=== PATIENT | male | born 1995 | race African-American/Black ===

== ENCOUNTER 2016-06-12 16:17 | Inpatient (IN) | payer OTHER ==
[~2016-06-12] VITALS: Ht 167.6 cm; Wt 65.8 kg
[2016-06-12 17:25] LABS: BASO % 0.2 % (0.0-1.0); EOS # 0.6 K/mm3 (0.0-0.50); EOS % 4.5 % (0.0-3.0); LARGE UNSTAINED CELL # 0.1 K/mm3 (0.0-0.4); LARGE UNSTAINED CELL % 0.7 % (0.0-4.0); LYMPH # 0.5 K/mm3 (1.5-6.5); LYMPH % 3.9 % (24.0-44.0); MEAN CORPUSCULAR HEMOGLOBIN 30.7 pg (27.0-33.0); MEAN CORPUSCULAR HGB CONC 33.9 g/dl (32.0-36.5); MEAN CORPUSCULAR VOLUME 90.7 fl (80.0-96.0); MONO # 0.3 K/mm3 (0.0-0.8); MONO % 2.2 % (0.0-5.0); NEUTROPHILS # 11.3 K/mm3 (1.8-7.7); NEUTROPHILS % 88.5 % (36.0-66.0); PLATELET COUNT, AUTOMATED 211 k/mm3 (150-450); RED CELL DISTRIBUTION WIDTH 11.7 % (11.5-14.5); WHITE BLOOD COUNT 12.7 K/mm3 (4.0-10.0)
[2016-06-12] MEDS ORDERED: ACETAMINOPHEN 325 MG TAB As Ordered ONE (17:39)
[2016-06-12] MEDS ORDERED: IBUPROFEN 600 MG TAB As Ordered ONE (17:39)
[2016-06-12 17:45] LABS: ANION GAP 8 MEQ/L (8-16); BLOOD UREA NITROGEN 17 MG/DL (7-18); CALCIUM LEVEL 8.5 MG/DL (8.5-10.1); CARBON DIOXIDE LEVEL 26 MEQ/L (21-32); CHLORIDE LEVEL 104 MEQ/L (98-107); CREATININE FOR GFR 1.46 MG/DL (0.70-1.30); GLUCOSE, FASTING 140 MG/DL (70-105); POTASSIUM SERUM 3.8 MEQ/L (3.5-5.1); SODIUM LEVEL 138 MEQ/L (136-145)
[2016-06-12] MEDS ORDERED: ISOVUE-370 76% 100ML VIAL (Q9967) As Ordered ONE (17:46)
[2016-06-12 18:04] LABS: ERYTHROCYTE SEDIMENTATION RATE 21 mm/hr (0-15)
--- NOTE | 2016-06-12 18:14 | REP ---
Clinical: Right lower extremity mass. Technique: Axial contrast enhanced images of the right femoral diaphysis using 100 ml Isovue 370 intravenous contrast material with coronal and sagittal re-formations. Findings: CT examination demonstrates mild dermal thickening and subcutaneous infiltration along the medial aspect of the visualized right femur suggesting cellulitis. A small ovoid dermal collection measures approximately 2.2 x 0.9 x 1.9 cm and may represent localized abscess. The underlying musculature as well as the visualized neurovascular bundles and femur are normal. Impression: Cellulitis and possible small skin abscess measuring 22 x 9 x 19 mm. Signed by Los Saini MD 06/12/2016 06:05 P
[2016-06-12] MEDS ORDERED: CLINDAMYCIN INJ 900MG/6ML VIAL As Ordered ONE (18:28)
[2016-06-12] MEDS ORDERED: ACETAMINOPHEN 500 MG TAB PO PRN (18:45)
[2016-06-12] MEDS ORDERED: oxyCODONE 5MG TAB PO PRN (19:15)
--- NOTE | 2016-06-12 21:06 | EDDOCDS ---
Physician Documentation [facility] Name: Channing Melendez Age: 20 yrs Sex: Male : 1995 Arrival Date: 06/12/2016 Time: 16:17 Bed I4 / M4 Private MD: Brandee Phillips [facility] Disposition: 06/12/16 18:32 Hospitalization ordered by Kelli Chahal for Inpatient Admission. Preliminary diagnosis is Cellulitis of right lower limb - MEDIAL THIGH. - Bed requested for M PED. - Status is Inpatient Admission. slm - Condition is Stable. - Problem is new. - Symptoms are unchanged. Historical: - Allergies: no known allergies; - Home Meds: 1. none - PMHx: none; - PSHx: none; - Social history: Smoking status: Patient states was never smoker of tobacco. No barriers to communication noted, The patient speaks fluent Azeri, Speaks appropriately for age. - Family history: Not pertinent. - : The pt / caregiver states he / she is not on anticoagulants. Home medication list is obtained from the patient. - Exposure Risk Screening:: None identified. Vital Signs: 06/12 16:19 BP 122 / 68; Pulse 118; Resp 18; Temp 102.2(O); Pulse Ox 100% on R/A; Weight 65.77 kg / dem1 145 lbs; Height 66 in. (167.64 cm); Pain 10/10; 18:28 BP 134 / 53; Pulse 100; Resp 18; Temp 101.2(O); Pulse Ox 100% on R/A; kc3 18:41 BP 124 / 52; Pulse 99; Resp 18; Temp 100.9(O); Pulse Ox 98% on R/A; Pain 6/10; nb2 21:01 BP 126 / 62; Pulse 97; Resp 18; Temp 99.5(O); Pulse Ox 99% on R/A; Pain 2/10; mcp 16:19 Body Mass Index 23.40 (65.77 kg, 167.64 cm) dem1 MDM: 17:01 IV Saline Lock ordered. ck7 17:01 -Blood Culture (Adults Only), peripheral from different site, or from device/port/PICC ck7 etc. if present ordered. [facility]:01 [facility] ordered. ck7 17:01 Obtain sample by nasopharyngeal swab ordered. ck7 17:02 CBC with Diff Ordered. EDMS 17:02 MED Profile Ordered. EDMS 17:02 ESR Ordered. EDMS 17:02 CRP Ordered. EDMS 17:02 -Blood Culture Ordered. EDMS 17:02 -Influenza A&B Rapid Antigen - Nose Ordered. EDMS 17:05 -Blood Culture (Adults Only), peripheral from different site, or from device/port/PICC nb2 etc. if present complete. 17:07 BLOOD CULTURES Ordered. EDMS 17:20 Misc Shine Worker Order complete. lbd 17:30 Ibuprofen 600 mg PO once ordered. ck7 17:30 Acetaminophen Tablet 975 mg PO once ordered. ck7 17:52 Financial registration complete. kf3 18:19 CBC with Diff Reviewed. ck7 18:19 MED Profile Reviewed. ck7 18:19 ESR Reviewed. ck7 18:19 CRP Reviewed. ck7 18:19 -Influenza A&B Rapid Antigen - Nose Reviewed. ck7 18:19 [place] [place] was scanned into [employer] and attached to record. kf3 18:25 Clindamycin 900 mg IVPB once over 30 mins; dilute in 50mL of NS or D5W ordered. ck7 18:29 BED REQUEST+ADM ordered. EDMS 18:33 Admission / Observation Status ordered. EDMS 18:33 REGULAR DIET ordered. EDMS 19:31 C REACTIVE PROTEIN QUANTITATIV Ordered. EDMS 19:31 CBC WITH DIFFERENTIAL Ordered. EDMS 19:32 BASIC METABOLIC PROFILE Ordered. EDMS 20:33 T-Sheet-- Draft Copy was scanned into [employer] and attached to record. klr Administered Medications: 17:45 Drug: Ibuprofen 600 mg [ibuprofen 600 mg tablet (1 tabs)] Route: PO; kc3 17:45 Drug: Acetaminophen 975 mg [acetaminophen 325 mg tablet (3 tabs)] Route: PO; kc3 18:39 Drug: Clindamycin 900 mg [clindamycin 300 mg/50 mL in 5 % dextrose intravenous pml piggyback] Route: IVPB; Infused Over: 30 mins; Site: left antecubital; Signatures: Dispatcher [employer] EDMS Lourdes Cifuentes, Size Marker Unit lbd Shawanda Goodman RN RN srm Yosephr, Manuel, Reg Reg kf3 Kelly Kowalski RN RN pml Kwaczala, Christopher, RPA-C RPA-Cck7 Dannielle Santizo LPN LPN Trisha Perry Nicole nb2 Efrain Sanchez RN RN sa Crane, Kelsi RN kc3 The chart was reviewed and I authenticate all verbal orders and agree with the evaluation and treatment provided.Corrections: (The following items were deleted from the chart) 17:25 17:22 CT ANGIO LOWER EXTREM ordered. EDMS EDMS Attachments: 18:19 [facility] Payment Agreement kf3 20:33 T-Sheet-- Draft Copy klr MTDD
--- NOTE | 2016-06-12 21:06 | EDDOCDS ---
Nurse's Notes [facility] Name: Channing Melendez Age: 20 yrs Sex: Male : 1995 Arrival Date: 06/12/2016 Time: 16:17 Bed I4 / M4 Private MD: Brandee Phillips [facility] Diagnosis: Cellulitis of right lower limb-MEDIAL THIGH Presentation: 06/12 16:26 Presenting complaint: Patient states: sent here from [facility]- lump to right thigh for srm about 2 months. no injury to the area. its getting bigger and today started with temp 102. has had us/ and CT scan and 2 weeks ago was told to see a surgeon but didn't set that up. Adult Sepsis Screening: The patient does not have new or worsening altered mentation. Patient's respiratory rate is less than 22. Systolic blood pressure is greater than 100. Patient has a qSOFA score of 0- Negative Sepsis Screen. Suicide/Homicide risk assessment- the patient denies having any suicidal and/or homicidal ideations and does not present with any other emotional, behavioral or mental health complaints. 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 Transition of care: patient was not received from another setting of care. 16:26 Acuity: BIRD Level 3 srm 16:26 Method Of Arrival: Walkin/Carried/Asstd srm Triage Assessment: 16:28 General: Appears in no apparent distress, Behavior is appropriate for age, cooperative. srm Pain: Pain currently is 6 out of 10 on a pain scale. At worst was 8 out of 10 on a pain scale. 16:30 Pt Declines HIV testing. srm Historical: - Allergies: no known allergies; - Home Meds: 1. none - PMHx: none; - PSHx: none; - Social history: Smoking status: Patient states was never smoker of tobacco. No barriers to communication noted, The patient speaks fluent Estonian, Speaks appropriately for age. - Family history: Not pertinent. - : The pt / caregiver states he / she is not on anticoagulants. Home medication list is obtained from the patient. - Exposure Risk Screening:: None identified. Screenin:10 Screening information is obtained from the patient. Fall risk: No risks identified. pml Assistance ADL's: requires no assistance with activities of daily living. Abuse/DV Screen: The patient / caregiver reports he/she is: not in a situation that causes fear, pain or injury. Nutritional screening: No deficits noted. Advance Directives: Currently, there is no health care proxy. home support is adequate. Assessment: 17:10 General: Appears in no apparent distress, comfortable. Pain: Location: right hamstring pml Pain currently is 7 out of 10 on a pain scale. Neurological: Level of Consciousness is awake, alert, Oriented to person, place, time. Cardiovascular: Capillary refill < 3 seconds. Respiratory: Airway is patent Respiratory effort is even, unlabored. GI: Abdomen is non- distended. Derm: Skin is normal. Derm: palpable lump to posterior medial right upper thigh, approx gold ball sized. 18:39 General: resting on stretcher, resps easy and unlabored, skin p/w/d. . pml 19:42 General: Appears in no apparent distress, comfortable, Behavior is cooperative. mcp Neurological: No deficits noted. Respiratory: Airway is patent Respiratory effort is even, unlabored. Derm: Skin is normal, Red lump noticed right upper thigh with redness surrounding the lump. 20:59 General: Appears in no apparent distress, comfortable, Behavior is cooperative. mcp Neurological: No deficits noted. Respiratory: Airway is patent Respiratory effort is even, unlabored. Derm: Skin is normal. Vital Signs: 16:19 BP 122 / 68; Pulse 118; Resp 18; Temp 102.2(O); Pulse Ox 100% on R/A; Weight 65.77 kg; dem1 Height 66 in. (167.64 cm); Pain 10/10; 18:28 BP 134 / 53; Pulse 100; Resp 18; Temp 101.2(O); Pulse Ox 100% on R/A; kc3 18:41 BP 124 / 52; Pulse 99; Resp 18; Temp 100.9(O); Pulse Ox 98% on R/A; Pain 6/10; nb2 21:01 BP 126 / 62; Pulse 97; Resp 18; Temp 99.5(O); Pulse Ox 99% on R/A; Pain 2/10; mcp 16:19 Body Mass Index 23.40 (65.77 kg, 167.64 cm) [facility] Vitals: 16:19 Log In Time: June 12, 2016 at 16:17. [facility] ED Course: 16:18 Patient visited by Jung Oshea. dem1 16:18 Patient moved to Waiting dem1 16:19 Brandee Phillips [facility] is Private Physician. dem1 16:20 Patient visited by Jung Oshea. dem1 16:20 Patient moved to Pre RCE dem1 16:28 Triage Initiated srm 16:31 Patient moved to Triage 3 jjr 16:46 Pal Morales RPA-C is PHCP. ck7 16:46 Keron Bazzi MD is Attending Physician. ck7 16:46 Patient visited by Pal Morales RPA-C. ck7 17:03 Patient moved to I4 / M4 srm 17:10 The patient / caregiver is instructed regarding the plan of care and ED course. Patient pml has correct armband on for positive identification. Placed in gown. Bed in low position. Call light in reach. Side rails up X2. 17:12 Patient visited by Kelly Kowalski RN. pml 17:19 BLOOD CULTURES Sent. kc3 17:19 -Influenza A&B Rapid Antigen - Nose Sent. kc3 17:19 -Blood Culture Sent. kc3 17:20 Patient visited by Mare Hitchcock RN. kc3 17:20 CRP Sent. kc3 17:20 ESR Sent. kc3 17:20 MED Profile Sent. kc3 17:20 CBC with Diff Sent. kc3 17:20 Inserted saline lock: 20 gauge in left antecubital area and blood collected. The kc3 patient tolerated the procedure well. Labs drawn. (by ED staff). Sent per order to lab. Labs/Blood culture drawn. 18:02 Patient visited by Pal Morales RPA-C. ck7 18:17 Patient name changed from Channing\S\\S\[place]\S\ to Channing\S\Javier\S\[place]. EDMS 18:19 [facility] [place] was scanned into [employer] and attached to record. kf3 18:31 Kelli Chahal is Hospitalizing Provider. ck7 18:40 Patient visited by Kelly Kowalski,IKE. pml 18:42 Patient visited by Naheed Alvarado. nb2 19:43 Patient visited by Janett Pierre RN. mcp 20:33 T-Sheet-- Draft Copy was scanned into [employer] and attached to record. klr 21:00 No procedures done that require assistance. mcp 21:05 Patient visited by Janett Pierre RN. [facility] Administered Medications: 17:45 Drug: Ibuprofen 600 mg [ibuprofen 600 mg tablet (1 tabs)] Route: PO; kc3 17:45 Drug: Acetaminophen 975 mg [acetaminophen 325 mg tablet (3 tabs)] Route: PO; kc3 18:39 Drug: Clindamycin 900 mg [clindamycin 300 mg/50 mL in 5 % dextrose intravenous pml piggyback] Route: IVPB; Infused Over: 30 mins; Site: left antecubital; Order Results: Lab Order: CBC with Diff; SPEC'M 06/12/16 17:10 Test: WHITE BLOOD COUNT; Value: 12.7; Range: 4.0-10.0; Abnormal: Above high normal; Units: K/mm3; Status: F Test: RED BLOOD COUNT; Value: 4.28; Range: 4.30-6.10; Abnormal: Below low normal; Units: M/mm3; Status: F Test: HEMOGLOBIN; Value: 13.1; Range: 14.0-18.0; Abnormal: Below low normal; Units: g/dl; Status: F Test: HEMATOCRIT; Value: 38.8; Range: 42.0-52.0; Abnormal: Below low normal; Units: %; Status: F Test: MEAN CORPUSCULAR VOLUME; Value: 90.7; Range: 80.0-96.0; Units: fl; Status: F Test: MEAN CORPUSCULAR HEMOGLOBIN; Value: 30.7; Range: 27.0-33.0; Units: pg; Status: F Test: MEAN CORPUSCULAR HGB CONC; Value: 33.9; Range: 32.0-36.5; Units: g/dl; Status: F Test: RED CELL DISTRIBUTION WIDTH; Value: 11.7; Range: 11.5-14.5; Units: %; Status: F Test: PLATELET COUNT, AUTOMATED; Value: 211; Range: 150-450; Units: k/mm3; Status: F Test: NEUTROPHILS %; Value: 88.5; Range: 36.0-66.0; Abnormal: Above high normal; Units: %; Status: F Test: LYMPH %; Value: 3.9; Range: 24.0-44.0; Abnormal: Below low normal; Units: %; Status: F Test: MONO %; Value: 2.2; Range: 0.0-5.0; Units: %; Status: F Test: EOS %; Value: 4.5; Range: 0.0-3.0; Abnormal: Above high normal; Units: %; Status: F Test: BASO %; Value: 0.2; Range: 0.0-1.0; Units: %; Status: F Test: LARGE UNSTAINED CELL %; Value: 0.7; Range: 0.0-4.0; Units: %; Status: F Test: NEUTROPHILS #; Value: 11.3; Range: 1.8-7.7; Abnormal: Above high normal; Units: K/mm3; Status: F Test: LYMPH #; Value: 0.5; Range: 1.5-6.5; Abnormal: Below low normal; Units: K/mm3; Status: F Test: MONO #; Value: 0.3; Range: 0.0-0.8; Units: K/mm3; Status: F Test: EOS #; Value: 0.6; Range: 0.0-0.50; Abnormal: Above high normal; Units: K/mm3; Status: F Test: BASO #; Value: 0.0; Range: 0.0-0.2; Units: K/mm3; Status: F Test: LARGE UNSTAINED CELL #; Value: 0.1; Range: 0.0-0.4; Units: K/mm3; Status: F Lab Order: [facility]; [facility] 06/12/16 17:10 Test: GLUCOSE, FASTING; Value: 140; Range: 70-105; Abnormal: Above high normal; Units: MG/DL; Status: F Test: BLOOD UREA NITROGEN; Value: 17; Range: 7-18; Units: MG/DL; Status: F Test: CREATININE FOR GFR; Value: 1.46; Range: 0.70-1.30; Abnormal: Above high normal; Units: MG/DL; Status: F Test: SODIUM LEVEL; Value: 138; Range: 136-145; Units: MEQ/L; Status: F Test: POTASSIUM SERUM; Value: 3.8; Range: 3.5-5.1; Units: MEQ/L; Status: F Test: CHLORIDE LEVEL; Value: 104; Range: 98-107; Units: MEQ/L; Status: F Test: CARBON DIOXIDE LEVEL; Value: 26; Range: 21-32; Units: MEQ/L; Status: F Test: ANION GAP; Value: 8; Range: 8-16; Units: MEQ/L; Status: F Test: CALCIUM LEVEL; Value: 8.5; Range: 8.5-10.1; Units: MG/DL; Status: F Lab Order: ESR; SPEC'M 06/12/16 17:10 Test: ERYTHROCYTE SEDIMENTATION RATE; Value: 21; Range: 0-15; Abnormal: Above high normal; Units: mm/hr; Status: F Lab Order: CRP; SPEC'M 06/12/16 17:10 Test: C REACTIVE PROTEIN QUANTITATIV; Value: 2.82; Range: 0.00-0.30; Abnormal: Above high normal; Units: MG/DL; Status: F Lab Order: -Influenza A&B Rapid Antigen - Nose; SPEC'M 06/12/16 17:10 Test: INFLUENZA A RAPID SCR by ICA; Value: INFLUENZA A RESULTS NEGATIVE; Status: F Test: INFLUENZA A RAPID SCR by ICA; Value: Comments:; Status: F Test: INFLUENZA B RAPID SCR by ICA; Value: INFLUENZA B RESULTS NEGATIVE; Status: F Test Note: ; The Influenza test is a direct rapid immunoassay for the qualitative detection of Influenza viral antigen. Cell culture (Viral Culture) testing should be considered to confirm NEGATIVE results and to assist in detecting other viruses that can provide similar clinical symptoms. Please contact the lab within 24 hours ([phone]) if confirmatory testing is desired. Outcome: 18:29 CT Study completed. 3 18:32 Decision to Hospitalize by Provider. ck7 21:00 Discharge Assessment: patient administered narcotics - no. The following High Risk [facility] Discharge criteria are identified: None. Admitted to Pediatrics accompanied by tech, via wheelchair, with chart. Condition: stable. Property :Personal belongings accompany Pt. 21:06 Patient left the ED. slm Signatures: Dispatcher [employer] EDMS Shawanda Goodman RN RN srm Peters, Mary, RN RN mcp Manuel Wong, Reg Reg kf3 Dawna Connor RN RN jjr Quay, Paulina, RN RN pml Mack Jung dem1 Pal Morales, RPA-C RPA-Cck7 Dannielle Santizo LPN LPN slm Crane, Kelsi, RN RN kc3 Dario, Naheed Pinzon2 LUKE
[2016-06-12 21:15] VITALS: BP 116/53
[2016-06-12] MEDS: NS 1,000 ML IV SCH (22:14)
[2016-06-12] MEDS: CEFTAROLINE FOSAMIL 600 MG in D5W MINI-BAG PLUS 50 ML IV SCH (22:28)
[2016-06-13 04:00] VITALS: BP 135/57
--- NOTE | 2016-06-13 06:46 | HPE ---
DATE OF ADMISSION: 06/12/2016 PRIMARY CARE PROVIDER: At the [facility] in [place]. CHIEF COMPLAINT: Pain, swelling, warmth and redness of the lump on the inner aspect of right thigh for 1 day. PAST MEDICAL HISTORY: None. 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 CT scan was done and there was talk about referral to a specialist; however, that did not happen yet. From yesterday, patient started having fever and then he noticed increasing pain, tenderness and swelling and redness of his lump on the inner thigh. He went to see his primary care provider at the [facility] today and there he was found to have a temperature of 102 and was sent here for evaluation. In the emergency department (ED), patient had a CT scan of the lower extremity done, which showed cellulitis and possible small skin abscess measuring 22 x 9 x 19 mm of the right thigh. Patient was febrile to 102.2 on admission. Patient is being admitted to the hospitalist service for cellulitis and abscess of the right thigh. PAST SURGICAL HISTORY: None. ALLERGIES: No known allergies. SOCIAL HISTORY: Patient does not smoke, does not abuse alcohol or recreational drugs. FAMILY HISTORY: Not pertinent. REVIEW OF SYSTEMS: Fever, chills, headache for 1 day. Pain, swelling and redness of the lump on the inner thigh for 1 day. Denies any cough or phlegm, chest pain or shortness of breath. Denies any abdominal pain, vomiting or diarrhea. Did have some nausea earlier, which has now resolved. PHYSICAL EXAMINATION: VITAL SIGNS: Blood pressure 134/53, pulse 100, respiratory rate 18, temperature 101.2, pulse oximetry 100% in room air. GENERAL: Patient awake, alert, oriented times three, sitting up in bed in no acute distress. HEENT: Normocephalic, atraumatic. Moist mucous membranes. Anicteric eyes. CHEST: Clear to auscultation. CARDIOVASCULAR: S1, S2 regular. No rub, murmur or gallop. ABDOMEN: Soft, nontender, bowel sounds present. EXTREMITIES: No edema. On the right lower extremity on the inner aspect of the thigh there is a 2 x 2 cm swelling with fluctuation with surrounding inflammation. LABORATORY DATA: WBC 12.7, hemoglobin 13.1, platelets 211. Sodium 138, potassium 3.8, chloride 104, bicarbonate 26, BUN 17, creatinine 1.46, glucose 140, calcium 8.5, CRP 2.82. ASSESSMENT AND PLAN: This is a 20-year-old male admitted for cellulitis and abscess of the thigh. PLAN: 1. For cellulitis and abscess, will start the patient on ceftaroline. Blood cultures have been sent. Have asked Dr. Griffith from surgery to evaluate the patient to see if the patient will need incision and drainage. 2. Acute kidney injury. Possibly due to high fever, insensible losses and prerenal and mild dehydration from these. Will start the patient on intravenous (IV) fluids. 3. Deep venous thrombosis (DVT) prophylaxis has been ordered. 4. Gastrointestinal (GI) prophylaxis has been ordered.
[2016-06-13 06:59] LABS: BASO % 0.1 % (0.0-1.0); EOS # 0.6 K/mm3 (0.0-0.50); EOS % 6.8 % (0.0-3.0); LARGE UNSTAINED CELL # 0.2 K/mm3 (0.0-0.4); LARGE UNSTAINED CELL % 1.5 % (0.0-4.0); LYMPH # 0.5 K/mm3 (1.5-6.5); LYMPH % 5.3 % (24.0-44.0); MEAN CORPUSCULAR HEMOGLOBIN 30.5 pg (27.0-33.0); MEAN CORPUSCULAR HGB CONC 33.7 g/dl (32.0-36.5); MEAN CORPUSCULAR VOLUME 90.7 fl (80.0-96.0); MONO # 0.3 K/mm3 (0.0-0.8); NEUTROPHILS % 83.4 % (36.0-66.0); PLATELET COUNT, AUTOMATED 174 k/mm3 (150-450); RED CELL DISTRIBUTION WIDTH 11.9 % (11.5-14.5); WHITE BLOOD COUNT 9.6 K/mm3 (4.0-10.0)
[2016-06-13 07:10] LABS: ANION GAP 7 MEQ/L (8-16); BLOOD UREA NITROGEN 20 MG/DL (7-18); CALCIUM LEVEL 8.1 MG/DL (8.5-10.1); CARBON DIOXIDE LEVEL 27 MEQ/L (21-32); CHLORIDE LEVEL 107 MEQ/L (98-107); CREATININE FOR GFR 1.26 MG/DL (0.70-1.30); GLUCOSE, FASTING 109 MG/DL (70-105); POTASSIUM SERUM 3.9 MEQ/L (3.5-5.1); SODIUM LEVEL 141 MEQ/L (136-145)
[2016-06-13 08:00] VITALS: BP 108/51
[2016-06-13] MEDS: NS 1,000 ML IV SCH ×3 (08:51→19:41)
[2016-06-13] MEDS ORDERED: ENOXAPARIN 40 MG/0.4 ML SYRINGE (J1650) SC SCH (09:00)
[2016-06-13] MEDS: PANTOPRAZOLE 40MG TAB (PROTONIX) PO SCH (09:32)
[2016-06-13] MEDS: CEFTAROLINE FOSAMIL 600 MG in D5W MINI-BAG PLUS 50 ML IV SCH ×2 (09:32→21:15)
--- NOTE | 2016-06-13 09:32 | IPNPDOC ---
Subjective Date Seen The patient was seen on 06/13/16. Subjective Chief Complaint/HPI The patient is a 20-year-old male admitted with a reason for visit of Cellulitis And Abscess Of Leg. General: Denies: Chills, Fatigue, Malaise, Night Sweats, Normal Appetite, Other Symptoms, ROS Unobtainable Constitutional: Denies: Chills, Fatigue, Fever, Lethargy, Malaise, Night Sweats , Other, Weakness, Weight Loss Eyes: Denies: Conjunctivae inflammation, Eyelid inflammation, Other, Pain, Redness, Vision change ENT: Denies: Dysphagia, Ear Pain, Epistaxis, Head Aches, Other Symptoms, Post Nasal Drip, Sinus Congestion, Sore Throat Skin: Denies: Breakdown, Bruising, Dry, Itching, Jaundice, Lesions, Nail Changes, Other, Rash Pulmonary: Denies: Cough, Dyspnea, Other Symptoms, Pleuritic Chest Pain Cardiovascular: Denies: Chest Pain, Edema, Lt Headedness, Orthopnea, Other Symptoms, Palpitations, Paroxysmal Noc. Dyspnea Gastrointestinal: Denies: Abdominal Pain, Constipation, Diarrhea, Hematochezia , Melena, Nausea, Other Symptoms, Vomiting Genitourinary: Denies: Dysuria, Frequency, Hematuria, Incontinence, Other Symptoms, Retention Hematologic: Denies: Bleeding Excessively, Bruising, Enlarged Lymph Nodes, Other Hematologic, Petecchia, Purpura Musculoskeletal: Reports: Leg Pain (pain at medial right thigh abscess) Objective Physical Examination General Exam: Positive: Alert, Cooperative, No Acute Distress Eye Exam: Positive: Conjunctiva & lids normal, EOMI, PERRLA, Negative: Sclera icteric ENT Exam: Positive: Atraumatic Neck Exam: Positive: Supple Chest Exam: Positive: Clear to auscultation, Normal air movement Heart Exam: Positive: Rate Normal, Regular Rhythm Abdomen Exam: Positive: Normal bowel sounds, Soft, Negative: Tenderness Skin Exam: Positive: Other skin issue (multiple tattoos; 2cm diameter circular abscess right medial thigh, warm to touch, tender to touch) Psych Exam: Positive: Mental status NL, Oriented x 3 Assessment /Plan Problems (1) Abscess Status: Acute Discussed With: Patient Problem Specific Plan: Consult Specialist, Monitor Clinically, Repeat Labs Problem Text: right medial thigh abscess. 2 months duration. worsening. denies any previous episodes. pending surgical consultation, likely bedside I&D. continue ceftaroline for now. blood cultures pending. (2) ALTHEA (acute kidney injury) Status: Acute Response to Treatment: Improving Discussed With: Patient Problem Specific Plan: Repeat Labs Problem Text: Likely pre-renal/dehydration. Continue IV fluids. Trend BMP. Plan/VTE VTE Prophylaxis Ordered?: No (not indicated) VTE Exclusion Pharmacological: At Low Risk for VTE Plan IVF: Continue Diet: Continue Current Activity: Continue Current Diagnostics: Repeat Labs in AM, Obtain Cultures VS, I&O, 24H, [facility] Vital Signs/I&O Vital Signs Date Time Temp Pulse Resp B/P Pulse Ox O2 Delivery O2 Flow Rate FiO2 06/13/16 08:00 97.7 99 18 108/51 99 Room Air I&O- Last 24 Hours up to 6 AM 06/13/16 06:00 Intake Total 895 ml Output Total 300 ml Balance 595 ml Laboratory Data 24H LABS Laboratory Tests 2 06/12/16 17:10: Anion Gap 8, White Blood Count 12.7H, Red Blood Count 4.28L, Hemoglobin 13.1L, Hematocrit 38.8L, Mean Corpuscular Volume 90.7, Mean Corpuscular Hemoglobin 30.7 , Mean Corpuscular Hemoglobin Concent 33.9, Red Cell Distribution Width 11.7, Platelet Count 211, Neutrophils (%) (Auto) 88.5H, Lymphocytes (%) (Auto) 3.9L, Monocytes (%) (Auto) 2.2, Eosinophils (%) (Auto) 4.5H, Basophils (%) (Auto) 0.2 , Neutrophils # (Auto) 11.3H, Lymphocytes # (Auto) 0.5L, Monocytes # (Auto) 0.3 , Eosinophils # (Auto) 0.6H, Basophils # (Auto) 0.0, C-Reactive Protein, Quantitative 2.82H, Blood Urea Nitrogen 17, Creatinine 1.46H, Sodium Level 138, Potassium Level 3.8, Chloride Level 104, Carbon Dioxide Level 26, Calcium Level 8.5, Erythrocyte Sedimentation Rate 21H, Large Unclassified Cells # 0.1, Large Unclassified Cells % 0.7 06/13/16 06:42: Anion Gap 7L, White Blood Count 9.6, Red Blood Count 3.86L, Hemoglobin 11.8L, Hematocrit 35.0L, Mean Corpuscular Volume 90.7, Mean Corpuscular Hemoglobin 30.5 , Mean Corpuscular Hemoglobin Concent 33.7, Red Cell Distribution Width 11.9, Platelet Count 174, Neutrophils (%) (Auto) 83.4H, Lymphocytes (%) (Auto) 5.3L, Monocytes (%) (Auto) 3.0, Eosinophils (%) (Auto) 6.8H, Basophils (%) (Auto) 0.1 , Neutrophils # (Auto) 8.0H, Lymphocytes # (Auto) 0.5L, Monocytes # (Auto) 0.3, Eosinophils # (Auto) 0.6H, Basophils # (Auto) 0.0, C-Reactive Protein, Quantitative 5.03H, Blood Urea Nitrogen 20H, Creatinine 1.26, Sodium Level 141, Potassium Level 3.9, Chloride Level 107, Carbon Dioxide Level 27, Calcium Level 8.1L, Large Unclassified Cells # 0.2, Large Unclassified Cells % 1.5 CBC/BMP Laboratory Tests 06/12/16 17:10 Calcium Level 8.5, Red Blood Count 4.28 L, Mean Corpuscular Volume 90.7, Mean Corpuscular Hemoglobin 30.7, Mean Corpuscular Hemoglobin Concent 33.9, Red Cell Distribution Width 11.7, Neutrophils (%) (Auto) 88.5 H, Lymphocytes (%) (Auto) 3.9 L, Monocytes (%) (Auto) 2.2, Eosinophils (%) (Auto) 4.5 H, Basophils (%) ( Auto) 0.2, Neutrophils # (Auto) 11.3 H, Lymphocytes # (Auto) 0.5 L, Monocytes # (Auto) 0.3, Eosinophils # (Auto) 0.6 H, Basophils # (Auto) 0.0 06/13/16 06:42 Calcium Level 8.1 L, Red Blood Count 3.86 L, Mean Corpuscular Volume 90.7, Mean Corpuscular Hemoglobin 30.5, Mean Corpuscular Hemoglobin Concent 33.7, Red Cell Distribution Width 11.9, Neutrophils (%) (Auto) 83.4 H, Lymphocytes (%) (Auto) 5.3 L, Monocytes (%) (Auto) 3.0, Eosinophils (%) (Auto) 6.8 H, Basophils (%) ( Auto) 0.1, Neutrophils # (Auto) 8.0 H, Lymphocytes # (Auto) 0.5 L, Monocytes # ( Auto) 0.3, Eosinophils # (Auto) 0.6 H, Basophils # (Auto) 0.0 Microbiology Microbiology 06/12/16 Blood Culture, Received Pending 06/12/16 Blood Culture, Received Pending 06/12/16 Influenza Virus Type A Antigen - Final, Complete 06/12/16 Influenza Virus Type B Antigen - Final, Complete CORY JOHNSON MD Jun 13, 2016 09:32
[2016-06-13] MEDS ORDERED: LIDOCAINE 1% SDV 5 ML VIAL As Ordered ONE (10:45)
[2016-06-13] MEDS ORDERED: LIDOCAINE 1% SDV 5 ML VIAL SC ONE (12:00)
[2016-06-13 16:00] VITALS: BP 121/54
[2016-06-13 20:00] VITALS: BP 127/59
[2016-06-14 04:00] VITALS: BP 107/55
[2016-06-14 06:34] LABS: BASO % 0.3 % (0.0-1.0); EOS # 0.7 K/mm3 (0.0-0.50); EOS % 6.8 % (0.0-3.0); LARGE UNSTAINED CELL # 0.3 K/mm3 (0.0-0.4); LARGE UNSTAINED CELL % 2.7 % (0.0-4.0); LYMPH # 1.6 K/mm3 (1.5-6.5); LYMPH % 15.2 % (24.0-44.0); MEAN CORPUSCULAR HEMOGLOBIN 30.8 pg (27.0-33.0); MEAN CORPUSCULAR HGB CONC 33.3 g/dl (32.0-36.5); MEAN CORPUSCULAR VOLUME 92.5 fl (80.0-96.0); MONO # 0.4 K/mm3 (0.0-0.8); MONO % 3.3 % (0.0-5.0); NEUTROPHILS # 7.7 K/mm3 (1.8-7.7); NEUTROPHILS % 71.7 % (36.0-66.0); PLATELET COUNT, AUTOMATED 158 k/mm3 (150-450); WHITE BLOOD COUNT 10.7 K/mm3 (4.0-10.0)
[2016-06-14 07:03] LABS: ANION GAP 6 MEQ/L (8-16); BLOOD UREA NITROGEN 12 MG/DL (7-18); CALCIUM LEVEL 8.3 MG/DL (8.5-10.1); CARBON DIOXIDE LEVEL 26 MEQ/L (21-32); CHLORIDE LEVEL 111 MEQ/L (98-107); CREATININE FOR GFR 1.19 MG/DL (0.70-1.30); GLUCOSE, FASTING 106 MG/DL (70-105); POTASSIUM SERUM 4.1 MEQ/L (3.5-5.1); SODIUM LEVEL 143 MEQ/L (136-145)
[2016-06-14 08:00] VITALS: BP 101/49
[2016-06-14] MEDS: NS 1,000 ML IV SCH (08:22)
--- NOTE | 2016-06-14 08:25 | IPNPDOC ---
Subjective Date Seen The patient was seen on 06/14/16. Subjective Chief Complaint/HPI The patient is a 20-year-old male admitted with a reason for visit of Cellulitis And Abscess Of Leg. General: Denies: Chills, Fatigue, Malaise, Night Sweats, Normal Appetite, Other Symptoms, ROS Unobtainable Constitutional: Denies: Chills, Fatigue, Fever, Lethargy, Malaise, Night Sweats , Other, Weakness, Weight Loss Eyes: Denies: Conjunctivae inflammation, Eyelid inflammation, Other, Pain, Redness, Vision change ENT: Denies: Dysphagia, Ear Pain, Epistaxis, Head Aches, Other Symptoms, Post Nasal Drip, Sinus Congestion, Sore Throat Skin: Denies: Breakdown, Bruising, Dry, Itching, Jaundice, Lesions, Nail Changes, Other, Rash Pulmonary: Denies: Cough, Dyspnea, Other Symptoms, Pleuritic Chest Pain Cardiovascular: Denies: Chest Pain, Edema, Lt Headedness, Orthopnea, Other Symptoms, Palpitations, Paroxysmal Noc. Dyspnea Gastrointestinal: Denies: Abdominal Pain, Constipation, Diarrhea, Hematochezia , Melena, Nausea, Other Symptoms, Vomiting Musculoskeletal: Reports: Leg Pain (pain with movement at site of I&D, right medial thigh) Objective Physical Examination General Exam: Positive: Alert, Cooperative, No Acute Distress Eye Exam: Positive: Conjunctiva & lids normal, EOMI, Negative: Sclera icteric ENT Exam: Positive: Atraumatic Neck Exam: Positive: Supple Chest Exam: Positive: Clear to auscultation, Normal air movement Heart Exam: Positive: Rate Normal, Regular Rhythm Abdomen Exam: Positive: Normal bowel sounds, Soft, Negative: Tenderness Skin Exam: Positive: Other skin issue (multiple tattoos; bandages in place, right medial thigh; tender to touch) Psych Exam: Positive: Mental status NL, Oriented x 3 Assessment /Plan Problems (1) Abscess Status: Acute Discussed With: Patient Problem Specific Plan: Consult Specialist, Monitor Clinically, Repeat Labs Problem Text: right medial thigh abscess. 2 months duration. worsening. denies any previous episodes. s/p bedside I&D day 1 continue ceftaroline for now. wound cx prelim staph aureus blood cx pending mrsa screen pending (2) ALTHEA (acute kidney injury) Status: Acute Response to Treatment: Improving Discussed With: Patient Problem Specific Plan: Repeat Labs Problem Text: Likely pre-renal/dehydration. Continue IV fluids. Trend BMP. Improving (3) Anemia Status: Acute Response to Treatment: Compensated Discussed With: Patient Problem Specific Plan: Monitor Clinically, Repeat Labs Problem Text: likely acute blood loss from procedure yesterday asymptomatic continue to follow Plan/VTE VTE Prophylaxis Ordered?: No (not indicated) VTE Exclusion Pharmacological: At Low Risk for VTE Plan IVF: Discontinue Diet: Continue Current Activity: Continue Current Diagnostics: Repeat Labs in AM, Obtain Cultures VS, I&O, [facility] Vital Signs/I&O Vital Signs Date Time Temp Pulse Resp B/P Pulse Ox O2 Delivery O2 Flow Rate FiO2 06/14/16 08:00 96.2 77 20 101/49 100 Room Air I&O- Last 24 Hours up to 6 AM 06/14/16 06:00 Intake Total 3330 ml Output Total 1250 ml Balance 2080 ml Laboratory Data 24H LABS Laboratory Tests 2 06/14/16 06:18: Anion Gap 6L, White Blood Count 10.7H, Red Blood Count 3.45L, Hemoglobin 10.6L, Hematocrit 31.9L, Mean Corpuscular Volume 92.5, Mean Corpuscular Hemoglobin 30.8 , Mean Corpuscular Hemoglobin Concent 33.3, Red Cell Distribution Width 12.0, Platelet Count 158, Neutrophils (%) (Auto) 71.7H, Lymphocytes (%) (Auto) 15.2L, Monocytes (%) (Auto) 3.3, Eosinophils (%) (Auto) 6.8H, Basophils (%) (Auto) 0.3 , Neutrophils # (Auto) 7.7, Lymphocytes # (Auto) 1.6, Monocytes # (Auto) 0.4, Eosinophils # (Auto) 0.7H, Basophils # (Auto) 0.0, C-Reactive Protein, Quantitative 3.38H, Blood Urea Nitrogen 12, Creatinine 1.19, Sodium Level 143, Potassium Level 4.1, Chloride Level 111H, Carbon Dioxide Level 26, Calcium Level 8.3L, Large Unclassified Cells # 0.3, Large Unclassified Cells % 2.7 CBC/BMP Laboratory Tests 06/14/16 06:18 Calcium Level 8.3 L, Red Blood Count 3.45 L, Mean Corpuscular Volume 92.5, Mean Corpuscular Hemoglobin 30.8, Mean Corpuscular Hemoglobin Concent 33.3, Red Cell Distribution Width 12.0, Neutrophils (%) (Auto) 71.7 H, Lymphocytes (%) (Auto) 15.2 L, Monocytes (%) (Auto) 3.3, Eosinophils (%) (Auto) 6.8 H, Basophils (%) ( Auto) 0.3, Neutrophils # (Auto) 7.7, Lymphocytes # (Auto) 1.6, Monocytes # (Auto ) 0.4, Eosinophils # (Auto) 0.7 H, Basophils # (Auto) 0.0 Microbiology Microbiology 06/12/16 Blood Culture - Preliminary, Resulted No growth after 24 hours . All specim... 06/12/16 Blood Culture - Preliminary, Resulted No growth after 24 hours . All specim... 06/13/16 MRSA Screen, Received Pending 06/12/16 Influenza Virus Type A Antigen - Final, Complete 06/12/16 Influenza Virus Type B Antigen - Final, Complete 06/13/16 Gram Stain - Final, Resulted 06/13/16 Abscess Culture - Preliminary, Resulted Staphylococcus Aureus CORY JOHNSON MD Jun 14, 2016 08:25
[2016-06-14] MEDS: CEFTAROLINE FOSAMIL 600 MG in D5W MINI-BAG PLUS 50 ML IV SCH ×2 (09:33→20:55)
[2016-06-14] MEDS: PANTOPRAZOLE 40MG TAB (PROTONIX) PO SCH (09:33)
--- NOTE | 2016-06-14 15:11 | CR ---
DATE OF CONSULTATION: 06/13/2016 REASON FOR CONSULTATION: Abscess right thigh. 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 This has been mildly tender since then. He had seen his primary provider and at some point an ultrasound was done that showed a small fluid collection. In the last day or two, he has noticed increased pain in the area with some swelling and also noted a fever. He was seen at the [facility] on 06/12/2016 and referred to the emergency department for further treatment. A CT scan was done of his right thigh which reported a 2.2 x 0.9 x 1.9 cm subcutaneous fluid collection consistent with an abscess. The patient was admitted for management, and I am now consulted to evaluate the patient for drainage of his abscess. The patient denies any history of injury or prior infections. ALLERGIES: He has no known medical allergies. MEDICATIONS: He is not on any routine medications. SURGICAL HISTORY: Negative. MEDICAL HISTORY: Negative. REVIEW OF SYSTEMS: Reveals that he has had some recent fever and chills just for the last day or so. He has noticed some discomfort in the right thigh lump, but this has been generally pretty mild until the past day or two. He denies any dysuria or hematuria, cough or wheezing. He denies any nausea, vomiting, diarrhea or constipation. PHYSICAL EXAM: Reveals a fit appearing, pleasant young man in no apparent distress currently. He is alert, oriented and cooperative. Sclerae are anicteric. Mucous membranes are moist. Neck is supple. Heart exam shows a regular rate and rhythm. Lungs are clear to auscultation. Abdomen is soft and nontender. Examination of the right thigh shows that on the inner aspect is an approximately 2-1/2 cm raised, fluctuant, tender area. This is oval in configuration and appears to be quite superficial. There is some mild induration overlying this nodular area. LABORATORY STUDIES: From 06/12/2016 show a white count of 12.7 with a hemoglobin of 13, hematocrit of 39 and a platelet count of 211,000. Differential showed 88% neutrophils and 4% lymphocytes. Chemistry profile showed a creatinine of 1.46 and his glucose was 140. C-reactive protein was 2.82. His electrolytes were otherwise normal. IMPRESSION: Right thigh abscess. PLAN: The patient was counseled for incision and drainage of the abscess. He was advised that by draining the abscess, we could obtain a culture to better identify the best antibiotics for use. I also advised him that resolution of the infection should be much more rapid once the abscess is drained. He had an opportunity to ask questions. He desires to proceed. Therefore, we proceeded with the incision and drainage at the bedside. The area was prepped with Betadine. Local anesthesia of 1% Xylocaine was infiltrated across the top of the lesion and an approximately 1 to 1.5 cm longitudinal incision was made over the abscess using an 11 blade. Some thick pus was released with a small amount of blood. A specimen was obtained for Gram stain and culture and sensitivity. The abscess was gently compressed to express all of the contained purulent material. A small wick of Betadine gauze was then inserted into the wound followed by a bulky bandage. The patient tolerated the procedure well without apparent complication. He will be started on warm compresses or showers later in the day. Antibiotics were at the discretion of the hospitalist team.
[2016-06-14 16:00] VITALS: BP 104/51
[2016-06-14 20:00] VITALS: BP 119/74
--- NOTE | 2016-06-14 22:06 | EDDOCDS ---
Physician Documentation [facility] Name: Channing Melendez Age: 20 yrs Sex: Male : 1995 Arrival Date: 06/12/2016 Time: 16:17 Bed I4 / M4 Private MD: Brandee Phillips [facility] Disposition: 06/12/16 18:32 Hospitalization ordered by Kelli Chahal for Inpatient Admission. Preliminary diagnosis is Cellulitis of right lower limb - MEDIAL THIGH. - Bed requested for M PED. - Status is Inpatient Admission. slm - Condition is Stable. - Problem is new. - Symptoms are unchanged. Historical: - Allergies: no known allergies; - Home Meds: 1. none - PMHx: none; - PSHx: none; - Social history: Smoking status: Patient states was never smoker of tobacco. No barriers to communication noted, The patient speaks fluent Mongolian, Speaks appropriately for age. - Family history: Not pertinent. - : The pt / caregiver states he / she is not on anticoagulants. Home medication list is obtained from the patient. - Exposure Risk Screening:: None identified. Vital Signs: 06/12 16:19 BP 122 / 68; Pulse 118; Resp 18; Temp 102.2(O); Pulse Ox 100% on R/A; Weight 65.77 kg / dem1 145 lbs; Height 66 in. (167.64 cm); Pain 10/10; 18:28 BP 134 / 53; Pulse 100; Resp 18; Temp 101.2(O); Pulse Ox 100% on R/A; kc3 18:41 BP 124 / 52; Pulse 99; Resp 18; Temp 100.9(O); Pulse Ox 98% on R/A; Pain 6/10; nb2 21:01 BP 126 / 62; Pulse 97; Resp 18; Temp 99.5(O); Pulse Ox 99% on R/A; Pain 2/10; mcp 16:19 Body Mass Index 23.40 (65.77 kg, 167.64 cm) dem1 MDM: 17:01 IV Saline Lock ordered. ck7 17:01 -Blood Culture (Adults Only), peripheral from different site, or from device/port/PICC ck7 etc. if present ordered. 17:01 [facility] [employer] Inspector Order ordered. ck7 17:01 Obtain sample by nasopharyngeal swab ordered. ck7 17:02 CBC with Diff Ordered. EDMS 17:02 MED Profile Ordered. EDMS 17:02 ESR Ordered. EDMS 17:02 CRP Ordered. EDMS 17:02 -Blood Culture Ordered. EDMS 17:02 -Influenza A&B Rapid Antigen - Nose Ordered. EDMS 17:05 -Blood Culture (Adults Only), peripheral from different site, or from device/port/PICC nb2 etc. if present complete. 17:07 BLOOD CULTURES Ordered. EDMS 17:20 Misc [employer] Inspector Order complete. lbd 17:30 Ibuprofen 600 mg PO once ordered. ck7 17:30 Acetaminophen Tablet 975 mg PO once ordered. ck7 17:52 Financial registration complete. kf3 18:19 CBC with Diff Reviewed. ck7 18:19 MED Profile Reviewed. ck7 18:19 ESR Reviewed. ck7 18:19 CRP Reviewed. ck7 18:19 -Influenza A&B Rapid Antigen - Nose Reviewed. ck7 18:19 [place] [place] Payment Agreement was scanned into [employer] and attached to record. kf3 18:25 Clindamycin 900 mg IVPB once over 30 mins; dilute in 50mL of NS or D5W ordered. ck7 18:29 BED REQUEST+ADM ordered. EDMS 18:33 Admission / Observation Status ordered. EDMS 18:33 REGULAR DIET ordered. EDMS 19:31 C REACTIVE PROTEIN QUANTITATIV Ordered. EDMS 19:31 CBC WITH DIFFERENTIAL Ordered. EDMS 19:32 BASIC METABOLIC PROFILE Ordered. EDMS 20:33 T-Sheet-- Draft Copy was scanned into [employer] and attached to record. klr Administered Medications: 17:45 Drug: Ibuprofen 600 mg [ibuprofen 600 mg tablet (1 tabs)] Route: PO; kc3 17:45 Drug: Acetaminophen 975 mg [acetaminophen 325 mg tablet (3 tabs)] Route: PO; kc3 18:39 Drug: Clindamycin 900 mg [clindamycin 300 mg/50 mL in 5 % dextrose intravenous pml piggyback] Route: IVPB; Infused Over: 30 mins; Site: left antecubital; Signatures: Dispatcher [employer] EDMS Lourdes Cifuentes, Manager Universal Unit lbd Shawanda Goodman RN RN srm Yosephr, Manuel, Reg Reg kf3 Kelly Kowalski RN RN pml Kwaczala, Christopher, RPA-C RPA-Cck7 Dannielle Santizo LPN LPN Trisha Perry Nicole nb2 Efrain Sanchez RN RN Mare Crandall RN kc3 The chart was reviewed and I authenticate all verbal orders and agree with the evaluation and treatment provided.Corrections: (The following items were deleted from the chart) 17:25 17:22 CT ANGIO LOWER EXTREM ordered. EDMS EDMS Attachments: 18:19 [facility] Payment Agreement kf3 20:33 T-Sheet-- Draft Copy klr Chart Complete MTDD
--- NOTE | 2016-06-14 22:06 | EDDOCDS ---
Physician Documentation [facility] Name: Channing Melendez Age: 20 yrs Sex: Male : 1995 Arrival Date: 06/12/2016 Time: 16:17 Bed I4 / M4 Private MD: rBandee Phillips [facility] Disposition: 06/12/16 18:32 Hospitalization ordered by Kelli Chahal for Inpatient Admission. Preliminary diagnosis is Cellulitis of right lower limb - MEDIAL THIGH. - Bed requested for M PED. - Status is Inpatient Admission. slm - Condition is Stable. - Problem is new. - Symptoms are unchanged. Historical: - Allergies: no known allergies; - Home Meds: 1. none - PMHx: none; - PSHx: none; - Social history: Smoking status: Patient states was never smoker of tobacco. No barriers to communication noted, The patient speaks fluent Maori, Speaks appropriately for age. - Family history: Not pertinent. - : The pt / caregiver states he / she is not on anticoagulants. Home medication list is obtained from the patient. - Exposure Risk Screening:: None identified. Vital Signs: 06/12 16:19 BP 122 / 68; Pulse 118; Resp 18; Temp 102.2(O); Pulse Ox 100% on R/A; Weight 65.77 kg / dem1 145 lbs; Height 66 in. (167.64 cm); Pain 10/10; 18:28 BP 134 / 53; Pulse 100; Resp 18; Temp 101.2(O); Pulse Ox 100% on R/A; kc3 18:41 BP 124 / 52; Pulse 99; Resp 18; Temp 100.9(O); Pulse Ox 98% on R/A; Pain 6/10; nb2 21:01 BP 126 / 62; Pulse 97; Resp 18; Temp 99.5(O); Pulse Ox 99% on R/A; Pain 2/10; mcp 16:19 Body Mass Index 23.40 (65.77 kg, 167.64 cm) dem1 MDM: 17:01 IV Saline Lock ordered. ck7 17:01 -Blood Culture (Adults Only), peripheral from different site, or from device/port/PICC ck7 etc. if present ordered. 17:01 [facility] [employer] [facility] ordered. ck7 17:01 Obtain sample by nasopharyngeal swab ordered. ck7 17:02 CBC with Diff Ordered. EDMS 17:02 MED Profile Ordered. EDMS 17:02 ESR Ordered. EDMS 17:02 CRP Ordered. EDMS 17:02 -Blood Culture Ordered. EDMS 17:02 -Influenza A&B Rapid Antigen - Nose Ordered. EDMS 17:05 -Blood Culture (Adults Only), peripheral from different site, or from device/port/PICC nb2 etc. if present complete. 17:07 BLOOD CULTURES Ordered. EDMS 17:20 Misc [employer] Performer Order complete. lbd 17:30 Ibuprofen 600 mg PO once ordered. ck7 17:30 Acetaminophen Tablet 975 mg PO once ordered. ck7 17:52 Financial registration complete. kf3 18:19 CBC with Diff Reviewed. ck7 18:19 MED Profile Reviewed. ck7 18:19 ESR Reviewed. ck7 18:19 CRP Reviewed. ck7 18:19 -Influenza A&B Rapid Antigen - Nose Reviewed. ck7 18:19 [facility] [place] Payment Agreement was scanned into [employer] and attached to record. kf3 18:25 Clindamycin 900 mg IVPB once over 30 mins; dilute in 50mL of NS or D5W ordered. ck7 18:29 BED REQUEST+ADM ordered. EDMS 18:33 Admission / Observation Status ordered. EDMS 18:33 REGULAR DIET ordered. EDMS 19:31 C REACTIVE PROTEIN QUANTITATIV Ordered. EDMS 19:31 CBC WITH DIFFERENTIAL Ordered. EDMS 19:32 BASIC METABOLIC PROFILE Ordered. EDMS 20:33 T-Sheet-- Draft Copy was scanned into [employer] and attached to record. klr Administered Medications: 17:45 Drug: Ibuprofen 600 mg [ibuprofen 600 mg tablet (1 tabs)] Route: PO; kc3 17:45 Drug: Acetaminophen 975 mg [acetaminophen 325 mg tablet (3 tabs)] Route: PO; kc3 18:39 Drug: Clindamycin 900 mg [clindamycin 300 mg/50 mL in 5 % dextrose intravenous pml piggyback] Route: IVPB; Infused Over: 30 mins; Site: left antecubital; Signatures: Dispatcher [employer] EDMS Lourdes Cifuentes, Spray Worker Unit lbd Shawanda Goodman RN RN srm Yosephr, Manuel, Reg Reg kf3 Kelly Kowalski RN RN pml Kwaczala, Christopher, RPA-C RPA-Cck7 Dannielle Santizo LPN LPN Trisha Perry Nicole nb2 Efrain Sanchez RN RN Mare Crandall RN kc3 The chart was reviewed and I authenticate all verbal orders and agree with the evaluation and treatment provided.Corrections: (The following items were deleted from the chart) 17:25 17:22 CT ANGIO LOWER EXTREM ordered. EDMS EDMS Attachments: 18:19 [facility] Payment Agreement kf3 20:33 T-Sheet-- Draft Copy klr Chart Complete MTDD
--- NOTE | 2016-06-14 22:06 | EDDOCDS ---
Nurse's Notes [facility] Name: Channing Melendez Age: 20 yrs Sex: Male : 1995 Arrival Date: 06/12/2016 Time: 16:17 Bed I4 / M4 Private MD: Brandee Phillips [facility] Diagnosis: Cellulitis of right lower limb-MEDIAL THIGH Presentation: 06/12 16:26 Presenting complaint: Patient states: sent here from [facility]- lump to right thigh for srm about 2 months. no injury to the area. its getting bigger and today started with temp 102. has had us/ and CT scan and 2 weeks ago was told to see a surgeon but didn't set that up. Adult Sepsis Screening: The patient does not have new or worsening altered mentation. Patient's respiratory rate is less than 22. Systolic blood pressure is greater than 100. Patient has a qSOFA score of 0- Negative Sepsis Screen. Suicide/Homicide risk assessment- the patient denies having any suicidal and/or homicidal ideations and does not present with any other emotional, behavioral or mental health complaints. Status: The patient is an active duty appliance service technician. Transition of care: patient was not received from another setting of care. 16:26 Acuity: BIRD Level 3 srm 16:26 Method Of Arrival: Walkin/Carried/Asstd srm Triage Assessment: 16:28 General: Appears in no apparent distress, Behavior is appropriate for age, cooperative. srm Pain: Pain currently is 6 out of 10 on a pain scale. At worst was 8 out of 10 on a pain scale. 16:30 Pt Declines HIV testing. srm Historical: - Allergies: no known allergies; - Home Meds: 1. none - PMHx: none; - PSHx: none; - Social history: Smoking status: Patient states was never smoker of tobacco. No barriers to communication noted, The patient speaks fluent Occitan, Speaks appropriately for age. - Family history: Not pertinent. - : The pt / caregiver states he / she is not on anticoagulants. Home medication list is obtained from the patient. - Exposure Risk Screening:: None identified. Screenin:10 Screening information is obtained from the patient. Fall risk: No risks identified. pml Assistance ADL's: requires no assistance with activities of daily living. Abuse/DV Screen: The patient / caregiver reports he/she is: not in a situation that causes fear, pain or injury. Nutritional screening: No deficits noted. Advance Directives: Currently, there is no health care proxy. home support is adequate. Assessment: 17:10 General: Appears in no apparent distress, comfortable. Pain: Location: right hamstring pml Pain currently is 7 out of 10 on a pain scale. Neurological: Level of Consciousness is awake, alert, Oriented to person, place, time. Cardiovascular: Capillary refill < 3 seconds. Respiratory: Airway is patent Respiratory effort is even, unlabored. GI: Abdomen is non- distended. Derm: Skin is normal. Derm: palpable lump to posterior medial right upper thigh, approx gold ball sized. 18:39 General: resting on stretcher, resps easy and unlabored, skin p/w/d. . pml 19:42 General: Appears in no apparent distress, comfortable, Behavior is cooperative. mcp Neurological: No deficits noted. Respiratory: Airway is patent Respiratory effort is even, unlabored. Derm: Skin is normal, Red lump noticed right upper thigh with redness surrounding the lump. 20:59 General: Appears in no apparent distress, comfortable, Behavior is cooperative. mcp Neurological: No deficits noted. Respiratory: Airway is patent Respiratory effort is even, unlabored. Derm: Skin is normal. Vital Signs: 16:19 BP 122 / 68; Pulse 118; Resp 18; Temp 102.2(O); Pulse Ox 100% on R/A; Weight 65.77 kg; dem1 Height 66 in. (167.64 cm); Pain 10/10; 18:28 BP 134 / 53; Pulse 100; Resp 18; Temp 101.2(O); Pulse Ox 100% on R/A; kc3 18:41 BP 124 / 52; Pulse 99; Resp 18; Temp 100.9(O); Pulse Ox 98% on R/A; Pain 6/10; nb2 21:01 BP 126 / 62; Pulse 97; Resp 18; Temp 99.5(O); Pulse Ox 99% on R/A; Pain 2/10; mcp 16:19 Body Mass Index 23.40 (65.77 kg, 167.64 cm) [facility] Vitals: 16:19 Log In Time: June 12, 2016 at 16:17. [facility] ED Course: 16:18 Patient visited by Jung Oshea. dem1 16:18 Patient moved to Waiting dem1 16:19 Brandee Phillips [facility] is Private Physician. dem1 16:20 Patient visited by Jung Oshea. dem1 16:20 Patient moved to Pre RCE dem1 16:28 Triage Initiated srm 16:31 Patient moved to Triage 3 jjr 16:46 Pal Morales RPA-C is PHCP. ck7 16:46 Keron Bazzi MD is Attending Physician. ck7 16:46 Patient visited by Pal Morales RPA-C. ck7 17:03 Patient moved to I4 / M4 srm 17:10 The patient / caregiver is instructed regarding the plan of care and ED course. Patient pml has correct armband on for positive identification. Placed in gown. Bed in low position. Call light in reach. Side rails up X2. 17:12 Patient visited by Kelly Kowalski RN. pml 17:19 BLOOD CULTURES Sent. kc3 17:19 -Influenza A&B Rapid Antigen - Nose Sent. kc3 17:19 -Blood Culture Sent. kc3 17:20 Patient visited by Mare Hitchcock RN. kc3 17:20 CRP Sent. kc3 17:20 ESR Sent. kc3 17:20 MED Profile Sent. kc3 17:20 CBC with Diff Sent. kc3 17:20 Inserted saline lock: 20 gauge in left antecubital area and blood collected. The kc3 patient tolerated the procedure well. Labs drawn. (by ED staff). Sent per order to lab. Labs/Blood culture drawn. 18:02 Patient visited by Pal Morales RPA-C. ck7 18:17 Patient name changed from Channing\S\\S\[place]\S\ to Channing\S\Javier\S\[place]. EDMS 18:19 [facility] Payment Agreement was scanned into [employer] and attached to record. kf3 18:31 Kelli Chahal is Hospitalizing Provider. ck7 18:40 Patient visited by Kelly Kowalski,IKE. pml 18:42 Patient visited by Naheed Alvarado. nb2 19:43 Patient visited by Janett Pierre RN. mcp 20:33 T-Sheet-- Draft Copy was scanned into [employer] and attached to record. klr 21:00 No procedures done that require assistance. mcp 21:05 Patient visited by Janett Pierre RN. [facility] Administered Medications: 17:45 Drug: Ibuprofen 600 mg [ibuprofen 600 mg tablet (1 tabs)] Route: PO; kc3 17:45 Drug: Acetaminophen 975 mg [acetaminophen 325 mg tablet (3 tabs)] Route: PO; kc3 18:39 Drug: Clindamycin 900 mg [clindamycin 300 mg/50 mL in 5 % dextrose intravenous pml piggyback] Route: IVPB; Infused Over: 30 mins; Site: left antecubital; Order Results: Lab Order: CBC with Diff; SPEC'M 06/12/16 17:10 Test: WHITE BLOOD COUNT; Value: 12.7; Range: 4.0-10.0; Abnormal: Above high normal; Units: K/mm3; Status: F Test: RED BLOOD COUNT; Value: 4.28; Range: 4.30-6.10; Abnormal: Below low normal; Units: M/mm3; Status: F Test: HEMOGLOBIN; Value: 13.1; Range: 14.0-18.0; Abnormal: Below low normal; Units: g/dl; Status: F Test: HEMATOCRIT; Value: 38.8; Range: 42.0-52.0; Abnormal: Below low normal; Units: %; Status: F Test: MEAN CORPUSCULAR VOLUME; Value: 90.7; Range: 80.0-96.0; Units: fl; Status: F Test: MEAN CORPUSCULAR HEMOGLOBIN; Value: 30.7; Range: 27.0-33.0; Units: pg; Status: F Test: MEAN CORPUSCULAR HGB CONC; Value: 33.9; Range: 32.0-36.5; Units: g/dl; Status: F Test: RED CELL DISTRIBUTION WIDTH; Value: 11.7; Range: 11.5-14.5; Units: %; Status: F Test: PLATELET COUNT, AUTOMATED; Value: 211; Range: 150-450; Units: k/mm3; Status: F Test: NEUTROPHILS %; Value: 88.5; Range: 36.0-66.0; Abnormal: Above high normal; Units: %; Status: F Test: LYMPH %; Value: 3.9; Range: 24.0-44.0; Abnormal: Below low normal; Units: %; Status: F Test: MONO %; Value: 2.2; Range: 0.0-5.0; Units: %; Status: F Test: EOS %; Value: 4.5; Range: 0.0-3.0; Abnormal: Above high normal; Units: %; Status: F Test: BASO %; Value: 0.2; Range: 0.0-1.0; Units: %; Status: F Test: LARGE UNSTAINED CELL %; Value: 0.7; Range: 0.0-4.0; Units: %; Status: F Test: NEUTROPHILS #; Value: 11.3; Range: 1.8-7.7; Abnormal: Above high normal; Units: K/mm3; Status: F Test: LYMPH #; Value: 0.5; Range: 1.5-6.5; Abnormal: Below low normal; Units: K/mm3; Status: F Test: MONO #; Value: 0.3; Range: 0.0-0.8; Units: K/mm3; Status: F Test: EOS #; Value: 0.6; Range: 0.0-0.50; Abnormal: Above high normal; Units: K/mm3; Status: F Test: BASO #; Value: 0.0; Range: 0.0-0.2; Units: K/mm3; Status: F Test: LARGE UNSTAINED CELL #; Value: 0.1; Range: 0.0-0.4; Units: K/mm3; Status: F Lab Order: [facility]; [facility] 06/12/16 17:10 Test: GLUCOSE, FASTING; Value: 140; Range: 70-105; Abnormal: Above high normal; Units: MG/DL; Status: F Test: BLOOD UREA NITROGEN; Value: 17; Range: 7-18; Units: MG/DL; Status: F Test: CREATININE FOR GFR; Value: 1.46; Range: 0.70-1.30; Abnormal: Above high normal; Units: MG/DL; Status: F Test: SODIUM LEVEL; Value: 138; Range: 136-145; Units: MEQ/L; Status: F Test: POTASSIUM SERUM; Value: 3.8; Range: 3.5-5.1; Units: MEQ/L; Status: F Test: CHLORIDE LEVEL; Value: 104; Range: 98-107; Units: MEQ/L; Status: F Test: CARBON DIOXIDE LEVEL; Value: 26; Range: 21-32; Units: MEQ/L; Status: F Test: ANION GAP; Value: 8; Range: 8-16; Units: MEQ/L; Status: F Test: CALCIUM LEVEL; Value: 8.5; Range: 8.5-10.1; Units: MG/DL; Status: F Lab Order: ESR; SPEC'M 06/12/16 17:10 Test: ERYTHROCYTE SEDIMENTATION RATE; Value: 21; Range: 0-15; Abnormal: Above high normal; Units: mm/hr; Status: F Lab Order: CRP; SPEC'M 06/12/16 17:10 Test: C REACTIVE PROTEIN QUANTITATIV; Value: 2.82; Range: 0.00-0.30; Abnormal: Above high normal; Units: MG/DL; Status: F Lab Order: -Influenza A&B Rapid Antigen - Nose; SPEC'M 06/12/16 17:10 Test: INFLUENZA A RAPID SCR by ICA; Value: INFLUENZA A RESULTS NEGATIVE; Status: F Test: INFLUENZA A RAPID SCR by ICA; Value: Comments:; Status: F Test: INFLUENZA B RAPID SCR by ICA; Value: INFLUENZA B RESULTS NEGATIVE; Status: F Test Note: ; The Influenza test is a direct rapid immunoassay for the qualitative detection of Influenza viral antigen. Cell culture (Viral Culture) testing should be considered to confirm NEGATIVE results and to assist in detecting other viruses that can provide similar clinical symptoms. Please contact the lab within 24 hours ([phone]) if confirmatory testing is desired. Outcome: 18:29 CT Study completed. 3 18:32 Decision to Hospitalize by Provider. ck7 21:00 Discharge Assessment: patient administered narcotics - no. The following High Risk [facility] Discharge criteria are identified: None. Admitted to Pediatrics accompanied by tech, via wheelchair, with chart. Condition: stable. Property :Personal belongings accompany Pt. 21:06 Patient left the ED. slm Signatures: Dispatcher [employer] EDMS Shawanda Goodman RN RN srm Peters, Mary, RN RN mcp Manuel Wong, Reg Reg kf3 Dawna Connor RN RN jjr Quay, Paulina, RN RN pml Mack Jung dem1 Pal Morales, RPA-C [id number] Dannielle Santizo LPN LPN slm Crane, Kelsi, RN RN kc3 Dario, Naheed Pinzon2 Chart Complete MTDD
[2016-06-15 05:00] VITALS: BP 144/65
[2016-06-15 07:08] LABS: BASO % 0.4 % (0.0-1.0); EOS # 0.9 K/mm3 (0.0-0.50); EOS % 11.9 % (0.0-3.0); LARGE UNSTAINED CELL # 0.3 K/mm3 (0.0-0.4); LARGE UNSTAINED CELL % 3.3 % (0.0-4.0); LYMPH # 1.4 K/mm3 (1.5-6.5); LYMPH % 17.9 % (24.0-44.0); MEAN CORPUSCULAR HEMOGLOBIN 30.6 pg (27.0-33.0); MEAN CORPUSCULAR HGB CONC 33.3 g/dl (32.0-36.5); MONO # 0.3 K/mm3 (0.0-0.8); MONO % 4.4 % (0.0-5.0); NEUTROPHILS # 4.8 K/mm3 (1.8-7.7); NEUTROPHILS % 62.1 % (36.0-66.0); PLATELET COUNT, AUTOMATED 207 k/mm3 (150-450); WHITE BLOOD COUNT 7.6 K/mm3 (4.0-10.0)
[2016-06-15 07:22] LABS: ANION GAP 10 MEQ/L (8-16); BLOOD UREA NITROGEN 10 MG/DL (7-18); CALCIUM LEVEL 8.8 MG/DL (8.5-10.1); CARBON DIOXIDE LEVEL 27 MEQ/L (21-32); CHLORIDE LEVEL 107 MEQ/L (98-107); GLUCOSE, FASTING 96 MG/DL (70-105); POTASSIUM SERUM 4.3 MEQ/L (3.5-5.1); SODIUM LEVEL 144 MEQ/L (136-145)
[2016-06-15 08:00] VITALS: BP 129/59
[2016-06-15] MEDS ORDERED: CLEO300C2 PO (08:49)
[2016-06-15] MEDS: CEFTAROLINE FOSAMIL 600 MG in D5W MINI-BAG PLUS 50 ML IV SCH (08:56)
[2016-06-15] MEDS: PANTOPRAZOLE 40MG TAB (PROTONIX) PO SCH (08:56)
--- NOTE | 2016-06-15 17:41 | DSES ---
DATE OF ADMISSION: 06/12/2016 DATE OF DISCHARGE: 06/15/2016 PRIMARY CARE PROVIDER: [facility]. GENERAL SURGEON: Dr. Anjel Griffith. FINAL DIAGNOSES: 1. Abscess of right medial thigh. 2. Acute kidney injury ([place]). 3. Anemia. 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 CT scan was done and there was initially outpatient possible referral to a specialist, but the day prior to admission, the patient started having fevers, and then noticed increasing pain, tenderness and swelling and redness of his lump of the inner right thigh. Went to the primary care provider at [facility] and was found to have a temperature of 102, and subsequently sent him to the emergency room for evaluation. HOSPITAL COURSE: The patient was seen in the emergency room. CT scan was done showing cellulitis and skin abscess. Subsequently surgery was called and status post incision and drainage (I and D). Cultures were sent, grew positive Staphylococcus aureus. The patient was continued on antibiotics Teflaro with progressive improvement. Fever has been resolving, as well as improvement of C-reactive protein. Currently, the patient is ambulating, tolerating oral, ready for discharge for further care as outpatient. Case was discussed with Dr. Griffith. VITAL SIGNS: Temperature 97.8, pulse 66, respirations 18, blood pressure 129/59, pulse oximetry 99% on room air. LABORATORY DATA: WBC 7.6, hemoglobin and hematocrit 11.7 over 35.1, platelets 207. Chemistry: Sodium 144, potassium 4.3, chloride 107, bicarbonate 27, BUN 1, creatinine 1.2. DISCHARGE MEDICATION: Clindamycin 300 mg by mouth three times a day for five more days DISCHARGE INSTRUCTIONS: Wound care: Keep the area clean and dressing change daily. Followup with primary care provider in 5-7 days. Avoid strenuous activity prior to seeing primary care provider.
== END 2016-06-15 10:25 | disposition home or self-care (01) | DRG 603 ==
LOC: M ED 16:17 → M PED 18:30 → M ED INP 18:31 → M PED 21:15
PROVIDERS: ADMIT Internal Medicine Nephrology; ATTEND Hospitalist
PROC: 0J9N0ZX Drainage of Right Lower Leg Subcutaneous Tissue and Fascia, Open Approach, Diagnostic (ICD-10-PCS; principal; 2016-06-13)
DX: L02.415 Cutaneous abscess of right lower limb (principal); N17.9 Acute kidney failure, unspecified; D64.9 Anemia, unspecified; B95.61 Methicillin susceptible Staphylococcus aureus infection as the cause of diseases classified elsewhere

== ENCOUNTER 2016-06-28 19:33 | Emergency (ER) | payer OTHER ==
[~2016-06-28] VITALS: Ht 167.6 cm; Wt 65.8 kg
[~2016-06-28 19:33] MED LIST: CLEO300C2 PO
[2016-06-28 19:46] VITALS: BP 121/72
== END 2016-06-28 21:25 | disposition home or self-care (01) ==
LOC: M ED 20:27
DX: S60.454A Superficial foreign body of right ring finger, initial encounter (principal); S67.194A Crushing injury of right ring finger, initial encounter; X58.XXXA Exposure to other specified factors, initial encounter; Y92.89 Other specified places as the place of occurrence of the external cause; Y93.89 Activity, other specified; Y99.8 Other external cause status; Z88.1 Allergy status to other antibiotic agents